=== PATIENT | female | born 1945 | race Caucasian/White ===

== ENCOUNTER → 2016-12-08 | Outpatient (CLI) | payer OTHER | LOC: RAD 04:04 | DX: Z12.31 Encounter for screening mammogram for malignant neoplasm of breast (principal) ==

== ENCOUNTER → 2018-01-31 | Outpatient (CLI) | payer OTHER | LOC: BC 02:12 | DX: Z12.31 Encounter for screening mammogram for malignant neoplasm of breast (principal) ==

== ENCOUNTER 2019-01-09 16:44 | Inpatient (IN) | payer OTHER ==
[~2019-01-09] VITALS: Ht 165.1 cm; Wt 71.1 kg
[2019-01-09 16:44] VITALS: BP 133/61
[2019-01-09] MEDS ORDERED: ATORVASTATIN CA20 MG PO (17:08)
[2019-01-09] MEDS ORDERED: XARELTO20 MG PO (17:08)
[2019-01-09] MEDS ORDERED: BYSTOLIC10 MG PO (17:09)
[2019-01-09 18:17] LABS: ABSOLUTE NEUTROPHILS 6.5 thou/uL (1.4-8.2); BASOPHILS 0.3 % (0.0-2.0); EOSINOPHILS 0.3 % (0.0-3.0); HEMATOCRIT 39.4 % (37.0-47.0); HEMOGLOBIN 13.2 gm/dL (12.0-15.0); LYMPHOCYTES 17.5 % (24.0-44.0); MCH 36.1 pg (26.0-34.0); MCHC 33.6 g/dL (28.0-37.0); MCV 107.4 fL (80.0-100.0); MONOCYTES 9.2 % (1.0-8.0); PLATELET COUNT 195 thou/uL (150-400); POLYS 72.7 % (36.0-66.0); RBC 3.67 mil/uL (4.20-5.00); RDW 12.7 % (10.5-14.5); WBC 8.9 thou/uL (4.0-11.0)
[2019-01-09 18:19] LABS: ANION GAP 6 mmol/L (7-16); BUN 10 mg/dL (7-18); CALCIUM 9.3 mg/dL (8.5-10.1); CHLORIDE 101 mmol/L (98-107); CO2 30 mmol/L (21-32); CREATININE 0.9 mg/dL (0.6-1.0); GLUCOSE 108 mg/dL (74-106); POTASSIUM 4.4 mmol/L (3.5-5.1); SODIUM 137 mmol/L (136-145)
[2019-01-09 18:27] LABS: TROPONIN-I <0.06 ng/mL (<0.06)
[2019-01-09 18:47] LABS: PLATELET ESTIMATE NORMAL
[2019-01-09 18:48] LABS: ANISOCYTOSIS SLIGHT; MACROCYTES 2+
[2019-01-09 20:03] VITALS: BP 140/56
[2019-01-09 20:13] VITALS: BP 140/56
[2019-01-09 20:23] VITALS: BP 138/60
[2019-01-09] MEDS ORDERED: METOPROLOL SUC100 MG PO (22:20)
[2019-01-09] MEDS ORDERED: LISINOPRIL2.5 MG PO (22:21)
[2019-01-09] MEDS ORDERED: ASPIR 8181 M1 PO (22:22)
[2019-01-09] MEDS ORDERED: CARDIOSTEROL C1 EACH PO (22:24)
[2019-01-09] MEDS ORDERED: POTASSIUM99 M1 PO (22:24)
[2019-01-09] MEDS ORDERED: PROBIOTIC1 EAC7 PO (22:25)
[2019-01-09] MEDS ORDERED: VITAMIN E1000 UNIT PO (22:25)
[2019-01-09 23:23] VITALS: BP 113/51
[2019-01-10 03:10] VITALS: BP 112/55
--- NOTE | 2019-01-10 05:19 | NUR ---
PT ARRIVED FROM ER VIA W/C. PLACED IN ROOM 355. ADMISSION ASSESSMENTS COMPLETED. PT REPORTEDLY BRADYCARDIC WITH RATES IN 40'S PER ER REPORT. PT IN SINUS BRADYCARDIA WITH RATE 40'S. NOTED OCCASIONAL PJC, PAC, PVC'S. DENIES ANY CHEST DISCOMFORT OR SOA. STABLE GAIT WHEN OUT OF BED TO USE BATHROOM. SEE CHARTING.
--- NOTE | 2019-01-10 08:26 | EKG ---
[address] [place] [address] ELECTROCARDIOGRAM REPORT Name: IZA COLLINS Room #: 355-P ADM IN M.R.#: [id number] Admission: 01/09/19 Attend Phys: Anselmo Lopez MD Discharge: Date of : 49 Report #: [id number] THIS REPORT FOR: //name// [facility] ED Test Date: 2019-01-09 Test Time: 16:58:23 Pat Name: IZA COLLINS Department: Room: 355 Gender: F Collar Cutter: NATIVIDAD : 1945 Requested By: Dani Huff Order Number: [id number] MD: Carlos Nieto Measurements Intervals [place] Rate: 42 P: -23 VT: 158 QRS: -2 QRSD: 109 T: -9 QT: 480 QTc: 402 Interpretive Statements Sinus bradycardia Nonspecific repol abnormality, anterior leads No previous ECG available for comparison Electronically Signed On 01-10-2019 8:26:01 CDT by Carlos Nieto [email or web address] <ELECTRONICALLY SIGNED> By: Carlos Nieto MD, [facility] 01/10/19 0826 1658 1658 Carlos Nieto MD, FACC /EPI
[2019-01-10 08:28] VITALS: BP 114/50
--- NOTE | 2019-01-10 08:33 | EKG ---
[address] [employer] [address] ELECTROCARDIOGRAM REPORT Name: IZA COLLINS Room #: 355-P ADM IN M.R.#: [id number] Admission: 01/09/19 Attend Phys: Anselmo Lopez MD Discharge: Date of : 49 Report #: [id number] THIS REPORT FOR: //name// [facility] Test Date: 2019-01-10 Test Time: 08:09:00 Pat Name: IAZ COLLINS Department: Room: 355 P Gender: F Fig Caprifier: ABEBE : 1945 Requested By: Nabeel Dickerson Order Number: [id number] MD: Carlos Nieto Measurements Intervals [place] Rate: 42 P: -12 NE: 157 QRS: -3 QRSD: 117 T: -14 QT: 529 QTc: 443 Interpretive Statements Sinus bradycardia T-wave abnormality No previous ECG available for comparison Electronically Signed On 01-10-2019 8:33:06 CDT by Carlos Nieto [email or web address] <ELECTRONICALLY SIGNED> By: Carlos Nieto MD, [facility] 01/10/19 0833 0809 8 Carlos Nieto MD, FACC /EPI
[2019-01-10 11:19] VITALS: BP 93/78
--- NOTE | 2019-01-10 12:28 | 2DMMODE ---
[facility] [address] [place] [address] 2 D/M-MODE ECHOCARDIOGRAM Name: IZA COLLINS Room #: 355-P [facility] IN ..#: [id number] Admission: 01/09/19 Attend Phys: Anselmo Lopez, Discharge: Date of : 49 Report #: [id number] THIS REPORT FOR: //name// APPROVED REPORT Study performed: 01/10/2019 09:48:25 EXAM: Comprehensive 2D, Doppler, and color-flow Echocardiogram Patient Location: Echo lab Room #: 355 Status: routine BSA: 1.78 HR: 46 bpm BP: 114/50 mmHg Rhythm: Bradycardia Other Information Study Quality: Adequate Indications Short of breath, bradycardia. Hx: Afib, valvular diseases, HTN HLP. 2D Dimensions RVDd: 29.46 mm IVSd: 12.13 (7-11mm) LVOT Diam: 19.54 (18-24mm) LVDd: 51.17 mm PWd: 11.00 (7-11mm) Ascending Ao: 36.28 (22-36mm) LVDs: 26.66 (25-40mm) Aortic Root: 29.59 mm Volumes Left Atrial Volume (Systole) Single Plane 4CH: 93.95 mL Single Plane 2CH: 75.76 mL LA ESV Index: 51.00 mL/m2 Aortic Valve AoV Peak Kaleb.: 2.34 m/s AO Peak Gr.: 21.97 mmHg LVOT Max P.80 mmHg AO Mean Gr.: 10.37 mmHg AO V2 Mean: 1.48 m/s LVOT Max V: 1.30 m/s AO V2 VTI: 49.92 cm SCOTTY Vmax: 1.67 cm2 AI Vmax: 3.92 m/s AI Union: 1.63 m/s2 [facility] [place] [address] 2 D/M-MODE ECHOCARDIOGRAM Name: IZA COLLINS Room #: 355-[facility] IN ..#: [id number] Admission: 01/09/19 Attend Phys: Anselmo Lopez, Discharge: Date of : 49 Report #: [id number] AI PHT: 698.59 ms Mitral Valve E/A Ratio: 4.5 MV Decel. Time: 246.01 ms MV E Max Kaleb.: 1.44 m/s MV A Kaleb.: 0.32 m/s MV PHT: 84.75 ms IVRT: 27.68 ms Pulmonary Valve PV Peak Kaleb.: 0.90 m/s PV Peak Gr.: 3.30 mmHg Tricuspid Valve TR Peak Kaleb.: 3.90 m/s RAP Estimate: 5.00 mmHg TR Peak Gr.: 59.23 mmHg PA Pressure: 64.00 mmHg Left Ventricle The left ventricle is normal size. There is normal LV segmental wall motion. Mild concentric left ventricular hypertrophy. Left ventricular systolic function is normal. LVEF is 60-65%. This study is not technically sufficient to allow evaluation of the LV diastolic function. Right Ventricle The right ventricle is normal size. The right ventricular systolic function is normal. Atria Left atrium is severely dilated. Right atrium is moderately dilated. Aortic Valve Aortic valve is calcified. Moderate aortic regurgitation. There is mild valvular aortic stenosis. Calculated aortic valve area is 1.7 cm2 with maximum pressure gradient of 22 mmHg and mean pressure gradient of 11 mmHg. Mitral Valve Mitral valve leaflets are mildly thickened. Moderate mitral regurgitation. There is mitral valve prolapse of the anterior leaflet. Tricuspid Valve The tricuspid valve is normal in structure. Moderate tricuspid [facility] [address] [place] [address] 2 D/M-MODE ECHOCARDIOGRAM Name: IZA COLLINS Room #: 355-P [facility] IN ..#: [id number] Admission: 01/09/19 Attend Phys: Anselmo Lopez, Discharge: Date of : 49 Report #: [id number] regurgitation. Estimated PAP is 65mmHg. Pulmonic Valve The pulmonary valve is normal in structure. Trace pulmonic regurgitation. Great Vessels The aortic root is normal in size. The ascending aorta is normal in size. IVC is normal in size and collapses >50% with inspiration. Pericardium There is no pericardial effusion. <Conclusion> The left ventricle is normal size. Mild concentric left ventricular hypertrophy. LVEF is 60-65%. This study is not technically sufficient to allow evaluation of the LV diastolic function. The right ventricle is normal size. Left atrium is severely dilated. Right atrium is moderately dilated. Aortic valve is calcified. Moderate aortic regurgitation. There is mild valvular aortic stenosis. Calculated aortic valve area is 1.7 cm2 with maximum pressure gradient of 22 mmHg and mean pressure gradient of 11 mmHg. Mitral valve leaflets are mildly thickened. Moderate mitral regurgitation. Moderate tricuspid regurgitation. Estimated PAP is 65mmHg. The aortic root is normal in size. There is no pericardial effusion. There is mitral valve prolapse of the anterior leaflet. <ELECTRONICALLY SIGNED> By: Nabeel Dickerson MD, FACC 01/10/19 1228 1228 1228 Nabeel Dickerson MD, FACC /INF
--- NOTE | 2019-01-10 15:14 | NUR ---
INITIAL ASSESSMENT: Reviewed chart and spoke with nursing. Pt was admitted from home due to pulmonary edema/bardycardia. Cardiology consulted. Pt off IV lasix and had echo earlier today. SW met with pt at bedside. Introduced role of SW. Pt is alert/orientated x 4. Pt reports she lives at home with her . Prior to admission, pt was independent with ADLs. No use of DME. No hx of HH services or SNF/Rehab placement. Pt's PCP is Dr. Lopez. Discharge home is anticipated for tomorrow per pt. No discharge needs identified at this time. SW is available to assist should need arise.
[2019-01-10 15:40] VITALS: BP 111/55
--- NOTE | 2019-01-10 18:12 | NUR ---
ASSUMED CARE OF PT AT 0700. PT ALERT AND ORIENTED X4 IN NO ACUTE DISTRESS. VOICING NO CONCERNS. CLEAR BREATH SOUNDS. UP AD MEGAN. DIAGNOSTRIC PROCEDURES TODAY. HR 40-50'S. BP STABLE. PT VOICING NO CONCERNS AT THIS TIME. AT BEDSIDE THROUGHOUT DAY. WILL CONT TO MONITOR.
[2019-01-10 20:40] VITALS: BP 118/49
[2019-01-11 00:12] VITALS: BP 139/56
--- NOTE | 2019-01-11 04:10 | NUR ---
PATIENT IS ALERT AND ORIENTED. PATIENT IS UP AD MEGAN. PATIENT IS SINUS LENNY ON TELE. PATIENTS LBM WAS THE 16TH. PATIENTS MEDICATIONS HAVE BEEN CHANGED. PATIENT IS RESTING COMFORTABLY IN BED. WCM. PATIENT IS ROOM AIR. PATIENT DENIES PAIN. PATIENT IS PENDING DISCHARGE TODAY. PATIENT IS PROGRESSING TO GOALS.
[2019-01-11 04:24] VITALS: BP 114/39
[2019-01-11 08:14] VITALS: BP 133/58
--- NOTE | 2019-01-11 16:08 | NUR ---
NURSE ASSUMED CARE FOR PATIENT AT 1553. PATIENT CAME FROM POST OP. PATIENT ALERT AND ORIENTED. PATIENT EDUCATED ON POST PROCEDURAL ORDERS. PATIENT EXPRESSES UNDERSTANDING. AT BEDSIDE. ASSESSMENTS AND INTERVENTIONS DOCCUMENTED.
--- NOTE | 2019-01-11 16:23 | NUR ---
ASSUMED CARE OF PT AT 0700. PT ALERT AND ORIENTED X4 IN NO ACUTE DISTRESS. BREATHING COMFORTABLY ON ROOM AIR. HR 40-50'S. BP STABLE. UP AD MEGAN. ASYMPTOMATIC. INSERTED PACEMAKER AT APPROX 1200. TRANSFERED TO CCU. REPORT GIVEN TO RECEIVING RN.
--- NOTE | 2019-01-11 16:29 | EKG ---
[place] [address] [address] [facility] [facility] [place] [address] ELECTROCARDIOGRAM REPORT Name: IZA COLLINS Room #: 207-P ADM IN M.R.#: [id number] Admission: 01/09/19 Attend Phys: Anselmo Lopez MD Discharge: Date of : 49 Report #: [id number] THIS REPORT FOR: //name// [facility] Test Date: 2019-01-11 Test Time: 10:23:03 Pat Name: IZA COLLINS Department: Room: 207 Gender: F Vocational Rehabilitation Technician: Shantell CUNNINGHAM : 1945 Requested By: Nabeel Dickerson Order Number: [id number] MD: Shawn Richmond Measurements Intervals [place] Rate: 44 P: -13 IL: 154 QRS: -7 QRSD: 105 T: -30 QT: 495 QTc: 424 Interpretive Statements Sinus bradycardia Abnormal T, consider unchanged from prior. Compared to ECG 01/10/2019 08:09:00 Electronically Signed On 01-11-2019 16:28:59 CDT by Shawn Richmond [email or web address] <ELECTRONICALLY SIGNED> By: Shawn Richmond MD 01/11/19 1628 1023 102 Shawn Richmond MD /JANAY
--- NOTE | 2019-01-11 18:59 | NUR ---
PAGED BECAUSE OF HIGH BP. DR WILL CALLED BACK, PATIENT BP WNL. DR. WILL WILL ROUND ON PATIENT. FAMILY EDUCATED AND UPDATED.
[2019-01-12 01:12] VITALS: BP 141/69
[2019-01-12 04:45] VITALS: BP 145/78
--- NOTE | 2019-01-12 05:32 | NUR ---
ASSESSMENT DOCUMENTED.PT BEEN RESTING IN BED IN NO ACUTE DISTRESS.VSS.S/P PACEMAKER PLACEMENT.INCISION COVERED WITH DRY DRESSING.IMMOBILIZER IN PLACE.A-PACED ON MONITOR WITH HR 60BPM.POSSIBLE DISCHARGE TO HOME TODAY.
[2019-01-12 05:45] LABS: HEMATOCRIT 40.8 % (37.0-47.0); HEMOGLOBIN 13.6 gm/dL (12.0-15.0); MCH 35.4 pg (26.0-34.0); MCHC 33.3 g/dL (28.0-37.0); MCV 106.2 fL (80.0-100.0); RBC 3.84 mil/uL (4.20-5.00); RDW 12.7 % (10.5-14.5); WBC 6.6 thou/uL (4.0-11.0)
[2019-01-12 06:10] LABS: ALBUMIN 3.3 g/dL (3.4-5.0); CALCIUM 8.9 mg/dL (8.5-10.1); CREATININE 0.8 mg/dL (0.6-1.0); POTASSIUM 3.6 mmol/L (3.5-5.1); TOTAL BILIRUBIN 0.8 mg/dL (<0.1-1.0); TOTAL PROTEIN 6.7 g/dL (6.4-8.2)
[2019-01-12] MEDS ORDERED: DEMADEX20 MG PO (07:57)
[2019-01-12 08:10] VITALS: BP 131/59
--- NOTE | 2019-01-12 10:04 | CATHLAB ---
[facility] [address] [place] [address] INVASIVE PROCEDURE REPORT Name: IZA COLLINS Room #: 207-P [facility] IN [facility].#: [id number] Admission: 01/09/19 Attend Phys: Anselmo Lopez, Discharge: Date of : 49 Report #: [id number] THIS REPORT FOR: //name// APPROVED REPORT Study performed: 01/11/2019 16:25:11 Patient Status: In-Patient Room #: 205 Event Personnel: Yariel Maurer MD Exam: Insertion of Dual Chamber Permanent Pacemaker Indications: Bradycardia The patient is a 73 year-old female with a history of symptomatic tachybradycardia syndrome and sick sinus syndrome. Implanted Devices: [employer]: Generator; [id number]; SN: [id number]; Use before: 2020-06-25 [employer]: Tendril STS; [id number]; SN: [id number]; Use before: 2021-11-25 [employer]: Tendril STS; -52; SN: [id number]; Use before: 2020-10-25 Procedure The patient underwent informed consent. We discussed the details of the procedure including the risks, which include, but not limited to bleeding, infection, vascular damage, cardiac perforation, and pneumothorax. She understood these risks and was willing to proceed. As such, she was brought to the EP/Cardiac Catheterization laboratory in a fasting and sedated state and prepped and draped in a The patient underwent general anesthesia, with no anesthesia related complications. The patient was brought to the EP/Cardiac Catheterization laboratory and the left chest and shoulder were prepped and draped in a sterile manner. The left subclavian region was infiltrated with 2% Lidocaine subcutaneous anesthesia. A transverse incision was made in the left upper chest cavity. The subcutaneous pocket was formed via blunt dissection. Percutaneous venous access was achieved and an introducer sheath was inserted into the left Subclavian vein. Sheaths were positions using the modified Seldinger technique Through the introducer sheaths the atrial and ventricular lead wires were positioned in the right atrial appendage and right ventricular apex respectively. Utilizing fluoroscopic guidance, the atrial and ventricular lead [facility] [address] [place] [address] INVASIVE PROCEDURE REPORT Name: IZA COLLINS Room #: 207-P [facility] IN [facility]#: [id number] Admission: 01/09/19 Attend Phys: Anselmo Lopez, Discharge: Date of : 49 Report #: [id number] wires were advanced over the wires and positioned in the right atria and right ventricle respectively. Capturing and sensing thresholds were verified. Electrode Parameters P Wave: 3.5mV R Wave: 11.8mV Atrial Threshold: 0.75V @ 0.4ms Ventricular Threshold: 1.0V @ 0.4ms Atrial Resistance: 480 ohms Ventricular Resistance: 760 ohms Dual Chamber The atrial and ventricular leads were then secured using 2.0 nonabsorbable sutures. The subcutaneous pocket was irrigated with vancomycin antibiotic solution.The atrial and ventricular leads were attached to the appropriate receptacles on the pulse generator and set screws firmly tightened to insure adequate contact and stability. The lead and pulse generator were placed into the subcutaneous pocket. Sharp and sponge counts were confirmed to be correct. At this time the pocket was closed subcutaneously with a 2.0 nonabsorbable suture in a running locking stitch involving 2 layer closure and the skin was closed with a 3.0 Vicryl utilizing a subcuticular which. The operative site was dressed in sterile fashion with steri strips and the patient was transferred to the floor in stable condition. Complications The patient tolerated the procedure well and there were no complications associated with the procedure. Conclusion 1. Successful implantation of a [employer] dual-chamber pacemaker Recommendations 1. Routine post insertion protocol <ELECTRONICALLY SIGNED> By: Yariel Maurer MD 01/12/19 1004 1004 100 Yariel Maurer MD /INF
[2019-01-12 11:05] VITALS: BP 131/59
--- NOTE | 2019-01-15 08:48 | EKG ---
[place] [address] [facility] [place] [address] ELECTROCARDIOGRAM REPORT Name: IZA COLLINS Room #: 207-[facility] IN M.R.#: [id number] Admission: 01/09/19 Attend Phys: Anselmo Lopez MD Discharge: 01/12/19 Date of : 49 Report #: [id number] THIS REPORT FOR: //name// [facility] Test Date: 2019-01-12 Test Time: 09:27:59 Pat Name: IZA COLLINS Department: Room: 207 P Gender: F Cutter And Presser: ABEBE : 1945 Requested By: Anselmo Lopez Order Number: [id number] MD: Carlos Nieto Measurements Intervals [place] Rate: 65 P: 25 MD: 196 QRS: -13 QRSD: 119 T: -30 QT: 465 QTc: 484 Interpretive Statements Atrial-paced complexes T-wave abnormality, consider anterior ischemia Compared to ECG 01/11/2019 10:23:03 Atrial premature complexes are now present Electronically Signed On 01-15-2019 8:48:19 CDT by Carlos Nieto [email or web address] <ELECTRONICALLY SIGNED> By: Carlos Nieto MD, [facility] 01/15/19 0848 6 6 Carlos Nieto MD, [facility] /EPI
--- NOTE | 2019-01-16 19:00 | H ---
[facility] [place] [address] HISTORY AND PHYSICAL Name: IZA COLLINS Room #: 207-P [facility] IN M.R.#: [id number] Admission: 01/09/19 Attend Phys: Anselmo Lopez MD Discharge: 01/12/19 Date of : 49 Report #: [id number] THIS REPORT FOR: //name// CC: Anselmo Lopez DATE OF SERVICE: 01/09/2019 CHIEF COMPLAINT: Progressive dyspnea. HISTORY OF PRESENT ILLNESS: The patient came to the office because of progressive fatigue and lack of energy and shortness of breath with exertion. She reports having these symptoms all summer, but they became much more noticeable after 12/27/2018 when she presented to have a cataract removed and was found to have SVT at a rate of 120-150 and the surgery was canceled. She was found to have atrial fibrillation on an EKG in my office, seen that afternoon by Dr. Dickerson, and started on 100 mg of metoprolol succinate. She reports of shortness of breath has been more rapidly progressive since that time, and became especially troublesome last night when she became worse lying down and going to bed. In my office on exam, she had a few crackles in her lung bases, and an elevated jugular venous pressure in her neck with a mild HJR. Her HEENT exam is normal, chest, abdomen and extremities were normal. Heart tones were normal and her rhythm was regular sinus bradycardia. Her EKG showed the atrial fibrillation of 12/27/2018 had resolved and she was now in sinus rhythm. However, her heart rate was slow at 44 and she had deep T-wave inversions from V1 through V4, which were not present on the prior EKG. A chest x-ray showed pulmonary vascular congestion and perihilar infiltrates suggestive of congestive heart failure. The heart size and the other structures were all normal. For these reasons, the patient was referred to the Emergency Room at [facility], where similar findings were obtained. Her BNP was elevated as well. Admission was indicated for this new finding of heart failure, as well as profound bradycardia in the 40s. A nuclear cardiac stress test at the cloth desizing range tender's office 2 weeks ago was negative. OTHER PAST MEDICAL HISTORY: Long history of hypertension with a labile component, hyperlipidemia, left cataract surgery that went well in November, and a right carotid bruit. REVIEW OF SYSTEMS: Negative except for the HPI above. [facility] [address] [place] [address] HISTORY AND PHYSICAL Name: IZA COLLINS Room #: 207-P [facility] IN ..#: [id number] Admission: 01/09/19 Attend Phys: Anselmo Lopez MD Discharge: 01/12/19 Date of : 49 Report #: [id number] PHYSICAL EXAMINATION: GENERAL: Shows a 73-year-old female who is in no acute distress, but describes clearly a decreased exercise tolerance and beginning last night she has had orthopnea. HEENT: Unremarkable except for mild redness in the right eye that is residual from recent cataract surgery that went well. NECK: Her jugular venous pressure is elevated, even when she is sitting with her head elevated at 45 degrees because of her symptomatic orthopnea. LUNGS: A few crackles are heard in the bases of the lungs but otherwise breath sounds are normal. CARDIOVASCULAR: S1 and S2 are normal, the rhythm is regular and the rate is slow at 41 beats per minute. This faint systolic murmur is present. ABDOMEN: Soft, nontender, without hepatosplenomegaly or masses. There is a touch of hepatojugular reflux present. EXTREMITIES: There is no significant pedal edema present. NEUROLOGIC: Intact. LABORATORY DATA: Not available at the time of this dictation, but it is known that her troponin was negative and her NT-proBNP was elevated about 1300 range. ASSESSMENT: 1. Symptoms, exam and chest x-ray all point towards mild congestive heart failure, which is new. 2. She presented on 12/27/2018 with new onset of rapid atrial fibrillation, which has since converted to sinus bradycardia. 3. She has a significant sinus bradycardia in response to the beta andrés medication she is taking for rate control of the a fib. 4. Hyperlipidemia. 5. New deeply inverted T waves across the precordium after having completely normal good quality nuclear cardiac stress scan approximately 2 weeks ago. 6. Persistent macrocytosis on her CBC panel. PLAN: She requires admission to the hospital on a telemetry unit. Her beta andrés is being discontinued and will be allowed to wear off while in the meantime she is being carefully monitored in the hospital against further decrease in her heart rate and the possibility of any conduction blocks from occurring. <ELECTRONICALLY SIGNED> By: Anselmo Lopez MD 01/16/19 1900 0006 0026 Anselmo Lopze MD /nt
--- NOTE | 2019-01-17 17:30 | D ---
[facility] [place] [address] DISCHARGE SUMMARY Name: IZA COLLINS Room #: 207-P [facility] M.R.#: [id number] Admission: 01/09/19 Attend Phys: Anselmo Lopez MD Discharge: 01/12/19 Date of : 49 Report #: [id number] THIS REPORT FOR: //name// CC: Nabeel Lopez DATE OF SERVICE: 01/12/[address] Dickerson, SUMMARY OF HISTORY AND PHYSICAL: The patient presented to my office with orthopnea and shortness of breath that had been progressing since the middle of the summer, but much more so in the previous 2 weeks. Approximately 2 weeks ago, she developed rapid atrial fibrillation while in the preoperative area before cataract replacement. She was seen in Dr. Dickerson's office and metoprolol succinate 100 mg was started and a good quality nuclear cardiac stress test was negative for ischemia. Echocardiogram abnormalities were found and are similar to those in the body of the report below. With her new medication over the last 2 weeks, she has had progressive exertional dyspnea followed by orthopnea for the first time last night, prompting her presentation to my office in the morning of admission. Evaluation was started, she was sent to the Emergency Room, and admitted for mild congestive heart failure and an exaggerated bradycardic response to beta andrés. SUMMARY OF HOSPITAL COURSE: She was admitted. She was given 40 mg of IV Lasix in the Emergency Room and diuresed well. Her shortness of breath improved, but she still did not feel like she was breathing easily. She was started on torsemide [address] Dickerson and at the end of her hospital stay, she was breathing easily. Her heart rate remained low despite the discontinuation of the metoprolol succinate. Then, at 48 hours, she began to develop a higher degree of block and pauses, long after the brunt of the medication would have worn off. For this reason, she declared herself as being headed towards significant bradycardia/heart block, and the decision was made to place a pacemaker. This was accomplished on 11/11/[address] Maurer who placed a dual chamber with a high rate of 110 and a low rate of 60 of the DDDR mode. There were no complications. Following day, her evaluation was adequate and she was discharged. Heart rate at discharge was 64, and occasionally paced. Blood pressure 131/59, respirations 20. LABORATORY DATA: On admission, her creatinine was 0.9 and the same at discharge. EGFR was 71. Troponin was negative. NT-proBNP on admission was [facility] [address] [place] [address] DISCHARGE SUMMARY Name: IZA COLLINS Room #: 207-P [facility].#: [id number] Admission: 01/09/19 Attend Phys: Anselmo Lopez MD Discharge: 01/12/19 Date of : 49 Report #: [id number] elevated at 1281. WBCs on admission were 8.9 thousand, hemoglobin was 13.2. MCV was 107.4. Platelets were 195,000. Segmented neutrophils were mildly elevated at 72.7%. Macrocytosis was 2+. PA and lateral chest x-ray on admission showed pulmonary vascular congestion and bilateral perihilar infiltrates. At discharge, the position of the pacemaker leads were noted to be in satisfactory position. The heart was noted to be somewhat enlarged, but there was no evidence for CHF on the discharge film. Echocardiogram was not adequate to assess for diastolic dysfunction. Left ventricle was normal sized with mild concentric LVH and an EF of 60%-65%. The left atrium was severely dilated and the right atrium was moderately dilated. There was moderate aortic regurgitation and mild aortic stenosis. There was moderate mitral regurgitation and mitral valve prolapse of the anterior leaflet. Pulmonary artery pressure was estimated at 65 mmHg. DISCHARGE DIAGNOSES: 1. Significant symptomatic bradycardia and high degree of a block was revealed in the hospital, and treated with a pacemaker: SSS/tachy/joe. 2. Rapid atrial fibrillation 2 weeks ago with rate controlled with metoprolol succinate 100 mg daily: PAF. 3. Spontaneous conversion to normal sinus rhythm in the interval. 4. "Normal" new deeply inverted T waves in V1 through V4 on EKG -- reviewed by Dr. Dickerson and the negative nuclear stress test of 2 weeks ago. These changes were felt to be not significant. 5. New diagnosis of acute on chronic congestive heart failure -- classic symptoms. 6. Significant macrocytosis. 7. Pulmonary artery hypertension. 8. Bi-atrial enlargement. 9a. Mitral insufficiency with prolapse. 9b. Mild aortic stenosis and moderate regurgitation. 10. Hypertension. 11. Nocturnal leg cramps effectively treated with otc potassium. PLAN: The patient was discharged with her new pacemaker and to be seen in the Pacemaker [facility] and to be seen in my office in 1-2 weeks with all her medications. Torsemide 20 mg daily. Lisinopril 1/2 of a 5 mg tablet daily (2.5 mg). Metoprolol succinate 100mg and Xarelto 20mg daily by Dr. Dickerson , [facility] [address] [place] [address] DISCHARGE SUMMARY Name: IZA COLLINS Room #: 207-P [facility] IN M.R.#: [id number] Admission: 01/09/19 Attend Phys: Anselmo Lopez MD Discharge: 01/12/19 Date of : 49 Report #: [id number] Atorvastatin 20 mg daily for hyperlipidemia was started immediately prior to admission. [employer] brand potassium 99mg daily. <ELECTRONICALLY SIGNED> By: Anselmo Lopez MD 01/17/19 1730 [id number] Anselmo Lopez MD /nt
== END 2019-01-12 11:41 | disposition home or self-care (01) | DRG 242 ==
LOC: ER 16:44 → 3W 18:56 → EROBS 18:56 → 2N 18:56 → 3W 20:20 → 2N 01-11 15:50 → ENTRNSPT 01-12 11:33 → EDTRNSPTSTS 01-12 11:38 → 2N 01-12 11:41
PROVIDERS: Emergency Medicine; Nurse Practitioner; ADMIT Internal Medicine
PROC: 02H63JZ Insertion of Pacemaker Lead into Right Atrium, Percutaneous Approach (ICD-10-PCS; principal; 2019-01-11)
PROC: 0JH606Z Insertion of Pacemaker, Dual Chamber into Chest Subcutaneous Tissue and Fascia, Open Approach (ICD-10-PCS; principal; 2019-01-11)
PROC: 02HK3JZ Insertion of Pacemaker Lead into Right Ventricle, Percutaneous Approach (ICD-10-PCS; principal; 2019-01-11)
DX: I49.5 Sick sinus syndrome (principal); I50.23 Acute on chronic systolic (congestive) heart failure; J81.1 Chronic pulmonary edema; I38 Endocarditis, valve unspecified; I48.0 Paroxysmal atrial fibrillation; I11.0 Hypertensive heart disease with heart failure; E78.5 Hyperlipidemia, unspecified; I35.0 Nonrheumatic aortic (valve) stenosis; I05.2 Rheumatic mitral stenosis with insufficiency; D75.89 Other specified diseases of blood and blood-forming organs; M19.90 Unspecified osteoarthritis, unspecified site; J45.909 Unspecified asthma, uncomplicated; J44.9 Chronic obstructive pulmonary disease, unspecified; Z86.73 Personal history of transient ischemic attack (TIA), and cerebral infarction without residual deficits; Z98.42 Cataract extraction status, left eye; Z85.3 Personal history of malignant neoplasm of breast; Z79.899 Other long term (current) drug therapy
CPT/HCPCS: 10081; 10879; 62110; 62900; 70005

== ENCOUNTER → 2019-01-09 | Outpatient (CLI) | payer OTHER ==
[~2019-01-09] MED LIST: ASPIR 8181 M1 PO; ATORVASTATIN CA20 MG PO; BYSTOLIC10 MG PO; CARDIOSTEROL C1 EACH PO; DEMADEX20 MG PO; LISINOPRIL2.5 MG PO; METOPROLOL SUC100 MG PO; POTASSIUM99 M1 PO; PROBIOTIC1 EAC7 PO; VITAMIN E1000 UNIT PO; XARELTO20 MG PO
--- NOTE | 2019-01-23 09:11 | HC ---
[facility] [place] [address] CONSULTATION Name: IZA COLLINS Room #: REG [facility].#: [id number] Admission: 01/09/19 Attend Phys: Anselmo Lopez MD Discharge: Date of : 49 Report #: [id number] THIS REPORT FOR: //name// CC: Carleen Lopez CARDIOLOGY CONSULT HISTORY OF PRESENT ILLNESS: The patient is a 73-year-old female known to myself. She is admitted by Dr. Lopez for some sluggishness, dyspnea, shortness of breath and EKG which is now showing sinus bradycardia with some T-wave abnormalities, although these are subtle. She presented to my office on 12/27/2018 with AFib, RVR, moderately symptomatic. Subsequently, found to have biatrial enlargement of a moderately severe nature with mild to moderate MR, TR and moderate aortic insufficiency, mitral valve prolapse of the anterior leaflet of the mitral valve. Ejection fraction was 50% range. The nuclear stress test subsequently, was negative for ischemia and I did review this. She has been having some progressive dyspnea, weakness, some sluggishness. She was treated with 100 mg of Toprol and she is in sinus bradycardia currently. It appears she must have converted somewhere spontaneously. Because it was requiring at least 100 mg dose to control her with rates in the 90s. That is when she was having underlying AFib. Subsequently, she has converted herself to sinus rhythm. This may all be a rate related phenomenon with her. Dr. Lopez was going to discontinue and place her on nebivolol, which I think is reasonable, but we will hold beta blockers. She has been anticoagulated with Xarelto without any issues and atorvastatin for her lipids. No documented CAD and no risk factors for CAD. She denies chest pain. She was scheduled for followup in our office here later this week or next week. She did not relay any of the symptoms, which have worsened in the last day or two. Her laboratory work is unremarkable. Troponin is negative. BNP is 1281, potassium 4.4. H and H are 13 and 39. Her MCV 107. I should note she is a moderate daily alcohol drinker and I would suspect this is definitely playing a role in her paroxysmal atrial fibrillation. PAST MEDICAL HISTORY: Otherwise, positive for some borderline hypertension, AFib, the anterior mitral valve prolapse with moderate mitral regurgitation, DJD, recent cataract surgery, hypercholesterolemia. ALLERGIES: No known drug allergies. SOCIAL HISTORY: Never smoker. Moderate daily drinker secondhand smoke. She is , with children. She has been fairly active. FAMILY HISTORY: Negative for premature coronary artery disease. REVIEW OF SYSTEMS: Essentially negative except for stated above with progressive dyspnea and shortness of breath. [facility] [address] [place] [address] CONSULTATION Name: IZA COLLINS Room #: REG [facility]#: [id number] Admission: 01/09/19 Attend Phys: Anselmo Lopez MD Discharge: Date of : 49 Report #: [id number] PHYSICAL EXAMINATION: GENERAL: She has diuresed some with IV Lasix given due to her chest x-ray with some cephalization. VITAL SIGNS: Her pulse is 45-50. Blood pressure 138/60. HEENT: Eyes reveal xanthelasmas. Pharynx is clear. NECK: Shows preserved upstrokes without JVD or bruits. LUNGS: Few fine basilar crackles, otherwise, clear anteriorly. CARDIOVASCULAR: Bradycardic, S1, S2. There is a diastolic blowing murmur and also a higher pitched holosystolic murmur out at the apex. ABDOMEN: Soft. No HSM or abdominal bruit. EXTREMITIES: Reveal trace of edema. Distal pulses diminished, but intact. NEUROLOGIC: Nonfocal. SKIN: Warm and dry without xanthoma or ulcer. MUSCULOSKELETAL: Generalized arthritic changes. ASSESSMENT: 1. Sinus bradycardia with some mild volume overload, possibly rate related. 2. Moderate valvular insufficiency by history. 3. Mild cardiomyopathy, EF by history 45-50%. We will repeat echo in the morning. RECOMMENDATIONS AND PLAN: We will hold beta blockers here. Obviously, she must have spontaneously converted and subsequently became bradycardic. This may all be a rate related phenomenon. So a lower dose of AV node inhibiting drug or selective agent may be reasonable here. Also with her valvular insufficiency, she had been on lisinopril which should be restarted. We would continue anticoagulation at this time. I do not think the EKG is not actually impressive for ischemic changes and no evidence that this would be underlying significant coronary artery disease. We will allow the rate to improve, some mild diuresis and we will continue to follow her. We would continue anticoagulation because of the paroxysmal nature of the AFib. Discussed this with the patient and her family. We will find Dr. Lopez in the morning. Thank you for asking me to assist in the care of this patient. <ELECTRONICALLY SIGNED> By: Nabeel Dickerson MD, FACC 01/23/19 0911 99 Nabeel Dickerson MD, FACC /nt
== END ==
LOC: RAD 13:25
DX: R91.8 Other nonspecific abnormal finding of lung field (principal)

== ENCOUNTER → 2019-04-25 | Outpatient (CLI) | payer OTHER | LOC: SJCVCIMAG 11:15 | DX: I08.8 Other rheumatic multiple valve diseases (principal); Z45.018 Encounter for adjustment and management of other part of cardiac pacemaker; I11.9 Hypertensive heart disease without heart failure; I48.91 Unspecified atrial fibrillation; E78.00 Pure hypercholesterolemia, unspecified; I49.5 Sick sinus syndrome; D68.59 Other primary thrombophilia; I10 Essential (primary) hypertension; Z82.49 Family history of ischemic heart disease and other diseases of the circulatory system; Z79.899 Other long term (current) drug therapy ==

== ENCOUNTER → 2020-06-04 | Outpatient (CLI) | payer OTHER | LOC: SJCVCIMAG 07:35 | PROVIDERS: ATTEND Internal Medicine Cardiovascular Disease | DX: R94.31 Abnormal electrocardiogram [ECG] [EKG] (principal); I48.91 Unspecified atrial fibrillation; E78.00 Pure hypercholesterolemia, unspecified; I49.5 Sick sinus syndrome; I35.0 Nonrheumatic aortic (valve) stenosis; I42.9 Cardiomyopathy, unspecified; D68.59 Other primary thrombophilia; I38 Endocarditis, valve unspecified; I10 Essential (primary) hypertension; Z86.16 Personal history of COVID-19; Z79.899 Other long term (current) drug therapy ==

== ENCOUNTER → 2021-01-07 | Outpatient (CLI) | payer OTHER | LOC: SJCVC 14:10 | PROVIDERS: ATTEND Internal Medicine Cardiovascular Disease | DX: I25.10 Atherosclerotic heart disease of native coronary artery without angina pectoris (principal); I49.5 Sick sinus syndrome; E78.00 Pure hypercholesterolemia, unspecified; R01.1 Cardiac murmur, unspecified; I48.91 Unspecified atrial fibrillation; I08.0 Rheumatic disorders of both mitral and aortic valves; I10 Essential (primary) hypertension; D68.59 Other primary thrombophilia; Z86.16 Personal history of COVID-19; Z79.899 Other long term (current) drug therapy ==

== ENCOUNTER → 2021-01-20 | Outpatient (CLI) | payer OTHER | LOC: BC 14:10 | PROVIDERS: ATTEND Internal Medicine | DX: Z12.31 Encounter for screening mammogram for malignant neoplasm of breast (principal) ==